=== PATIENT | female | born 1985 | race African-American/Black ===

== ENCOUNTER 2016-07-25 12:17 | Emergency (ER) | payer BC ==
[2016-07-25 12:21] VITALS: BMI 45.1
[2016-07-25] MEDS ORDERED: ZOFRAN INJ 4 MG VIAL IM ONE (13:40)
[2016-07-25] MEDS ORDERED: DEMEROL INJ IM ONE (13:40)
[2016-07-25] MEDS ORDERED: DEMEROL INJ ONE (13:44)
[2016-07-25] MEDS ORDERED: ZOFRAN INJ 4 MG VIAL ONE (13:44)
--- NOTE | 2016-07-25 13:48 | DR.GENAD ---
HPI - PCP Primary Care Physician: DR. WHITNEY - HPI Comment HPI Comment: PATIENT HAVE MIGRAINE AND IS HAVING SEVERE HEADACHE. BP CHECK TODAY WAS ELEVATED. DENIES URI SYMTOMS NO FEVER. - Complaint/Symptoms Chief Complaint Doctors Comments: HEADACHE, DIZZINESS, ELEVATED BP. Chief Complaint:: PATIENT STATED THAT HER BLOOD PRESSURE WAS UP TODAY. SHE HAS HX OF HTN BUT HAS BEEN OFF OF MEDICATION PER HER DOCTOR DUE TO MULT. GOOD READINGS. SHE STATED THAT HER HEAD HURTS AND THE RIGHT SIDE OF HER BODY. - Nurses notes reviewed Nurses Notes Review: Yes - Source History Provided: Patient - Mode of Arrival Mode of Arrival: Ambulatory - Timing Onset of Chief Complaint: 07/25/16 Came on: Suddenly - Duration Duration: Constant Duration: Hours - Severity Severity: Moderate PMH - PMH Past Medical History: Yes Past Medical History: Hypertension Past Surgical History: Yes Surgical History: - Family History History of Family Medical Conditions: Yes Family Medical History: Hypertension - Social History Does patient currently use any type of tobacco product: No Have you used tobacco products in the last 12 months: No Type of Tobacco Use: None Does any household member use tobacco: No Alcohol Use: None Do you use any recreational Drugs:: No Lives With: Family Lives Where: Home - infectious screening In the last 2 months have you had wt loss of >10#?: NO Have you had fever, night sweats or hemotysis?: No Have you traveled outside the country in the last 6 months?: No Isolation: Standard ROS - Review of Systems Constitutional: No Symptoms Reported Eyes: No Symptoms Reported ENTM: No Symptoms Reported Respiratoy: No Symptoms Reported Cardiovascular: No Symptoms Reported Gastrointestinal/Abdominal: Nausea Genitourinary: No Symptoms Reported Neurological: Headache, Dizziness Musculoskeletal: No Symptoms Reported Integumentary: No Symptoms Reported Hematologic/Lymphatic: No Symptoms Reported Endocrine: No Symptoms Reported All Other Systems: Reviewed and Negative PE - Vital Signs Vitals: Temperature 98.7 F Pulse Rate [Left Brachial] 98 Pulse Rate 107 Respiratory Rate 17 Blood Pressure [Left Arm] 125/72 Blood Pressure 172/91 O2 Sat by Pulse Oximetry 98 - General Limitations: No Limitations General Appearance: Alert - Head Head Exam: Normal Inspection - Eyes Eye exam: Normal Appearance - ENT ENT Exam: Normal External Ear Exam External Ear Exam: Normal External Inspection TM/Canal Exam: Bilateral Normal Nose Exam: Normal Nose Exam Mouth Exam: Normal Inspection Throat Exam: Normal Inspection - Neck Neck Exam: Trachea Midline - Chest Chest Inspection: Symmetric Chest Wall Rise - Respiratory Respiratory Exam: Normal Lung Sounds Bilat Respiratory Exam: Bilateral Clear to Auscultation - Cardiovascular Cardiovascular Exam: Regular Rate, Normal Rhythm, Normal Heart Sounds - Abdominal Exam Abdominal Exam: Normal Bowel Sounds, Soft. negative: Tenderness - Extremities Extremities Exam: Normal Inspection - Back Back Exam: Normal Inspection - Neurologic Neurological Exam: Alert, Oriented X3 - Psychiatric Psychiatric Exam: Anxious - Skin Skin Exam: Normal Color MDM - Additional Information Additional Information Obtained From: Family - Differential Diagnosis Differential Diagnosis: MIGRAINE, HTN Course - Treatment Treatment: SEE ORDERS. BP NORMAL AFTER HEADACHE IMPROVE, - Education/Counseling Education/Counseling: Patient, Family, Education Educated On: Treatment, Diagnosis, Needs for Follow Up - Diagnosis Discharge Problem: Migraine Qualifiers: Migraine type: without aura Status migrainosus presence: without status migrainosus Intractability: intractable Qualified Code(s): G43.019 - Migraine without aura, intractable, without status migrainosus - Discharge Plan Disposition: HOME, SELF-CARE Condition: Stable Prescriptions: [id number] [Fioricet Tab] 1 tab PO Q6H PRN #20 tab PRN Reason: Migraine Headache Ondansetron HCl [Zofran Tab 4 mg] 4 mg PO Q8H PRN #12 tab PRN Reason: Nausea/Vomiting - Follow ups/Referrals Follow ups/Referrals: RENETTA WHITNEY [Primary Care Provider] - 3 days - Instructions Instructions: Migraine Headache Additional Instructions: RETURN TO ED IF WORSE. CHECK DAILY BP, CHART AND TAKE TO PCP.
[2016-07-25 14:19] VITALS: BP 125/72
== END 2016-07-25 14:36 | disposition home or self-care (01) ==
LOC: ER 12:27
DX: G43.019 Migraine without aura, intractable, without status migrainosus (principal)
CPT/HCPCS: 96372; 99282; J2175; J2405

== ENCOUNTER 2017-09-09 17:10 | Emergency (ER) | payer SELFPAY ==
[2017-09-09 17:15] VITALS: BP 140/90; BMI 39.9
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
[2017-09-09] MEDS ORDERED: NORFLEX INJ IM ONE (17:52)
[2017-09-09] MEDS ORDERED: TORADOL 60 MG VIAL IM ONE (17:52)
[2017-09-09] MEDS ORDERED: TORADOL 60 MG VIAL ONE (17:54)
[2017-09-09] MEDS ORDERED: NORFLEX INJ ONE (17:54)
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
== END 2017-09-09 18:42 | disposition home or self-care (01) ==
LOC: ER 17:20
DX: S29.019A Strain of muscle and tendon of unspecified wall of thorax, initial encounter (principal); S39.012A Strain of muscle, fascia and tendon of lower back, initial encounter; S13.9XXA Sprain of joints and ligaments of unspecified parts of neck, initial encounter; V49.9XXA Car occupant (driver) (passenger) injured in unspecified traffic accident, initial encounter
CPT/HCPCS: 72072; 72100; 96372; 99282; 99283; J1885; J2360